=== PATIENT | male | born 1995 | race American Indian/Alaskan Native ===

== ENCOUNTER 2016-11-03 09:36 | Emergency (ER) | payer OTHER ==
[2016-11-03] MEDS ORDERED: FLEXERIL PO ONE (12:05)
[2016-11-03] MEDS ORDERED: TORADOL IM ONE (12:05)
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
[2016-11-03 15:41] VITALS: BP 107/72
== END 2016-11-03 15:40 | disposition home or self-care (01) ==
LOC: ED 09:36
DX: R07.81 Pleurodynia (principal); M54.2 Cervicalgia; V49.49XA Driver injured in collision with other motor vehicles in traffic accident, initial encounter; Y93.9 Activity, unspecified; Y92.9 Unspecified place or not applicable; Y99.9 Unspecified external cause status
CPT/HCPCS: 71020; 72040; 96372; 99283; J1885